=== PATIENT | female | born 1995 | race American Indian/Alaskan Native ===

== ENCOUNTER 2018-06-18 22:41 | Emergency (ER) | payer OTHER ==
[2018-06-18 22:59] VITALS: O2SAT 97
--- NOTE | 2018-06-18 23:36 | C.PDOC ---
History Of Present Illness 23 year old female is brought in to the ED by EMS and Police for evaluation. Patient was found acting bizarre in the lobby of her apartment. Initially patient was agitated upon arrival to the ED. Patient is now calm, cooperative. Patient states she ate some edible marijuana treat and smoke some marijuana as well. Patient states "coming down from a very bad trip". Patient has PMHx of asthma. Patient denies fever, chills, nausea, vomit, diarrhea, SOB, CP, SI/HI, hallucinations. Time Seen by Provider: 06/18/18 23:11 Chief Complaint (Nursing): Psychiatric Evaluation History Per: Patient, EMS History/Exam Limitations: intoxication Onset/Duration Of Symptoms: Hrs Current Symptoms Are (Timing): Still Present Suicide/Self Injury Attempted (Context): None Modifying Factor(s): Marijuana Associated Symptoms: denies: Depression, Suicidal Thoughts, Suicidal Plan Recent travel outside of the [place]: No Additional History Per: Patient, EMS, Law Enforcement Past Medical History Reviewed: Historical Data, Nursing Documentation, Vital Signs Vital Signs: Last Vital Signs Temp 99.9 F H 06/19/18 00:15 Pulse 113 H 06/19/18 00:15 Resp 22 06/19/18 00:15 BP 102/47 L 06/19/18 00:15 Pulse Ox 97 06/19/18 00:15 - Medical History PMH: Asthma Surgical History: No Surg Hx Family History: States: Unknown Family Hx - Social History Hx Alcohol Use: (unknown) Hx Substance Use: Yes - Immunization History Hx Tetanus Toxoid Vaccination: (unknown) Hx Influenza Vaccination: (unknown) Hx Pneumococcal Vaccination: (unknown) Review Of Systems Constitutional: Negative for: Fever, Chills Cardiovascular: Negative for: Chest Pain, Palpitations Respiratory: Negative for: Cough, Shortness of Breath Gastrointestinal: Negative for: Nausea, Vomiting, Abdominal Pain Neurological: Negative for: Weakness, Numbness Psych: Negative for: Depression, Suicidal ideation Physical Exam - Physical Exam Appears: Non-toxic, No Acute Distress Skin: Normal Color, Warm, Dry Head: Atraumatic, Normacephalic Eye(s): bilateral: Normal Inspection Oral Mucosa: Moist Neck: Normal ROM, Supple Chest: Symmetrical Cardiovascular: Rhythm Regular Respiratory: Normal Breath Sounds, No Rales, No Rhonchi, No Wheezing Gastrointestinal/Abdominal: Soft, No Tenderness, No Guarding, No Rebound Extremity: Normal ROM, No Tenderness, No Swelling Neurological/Psych: Oriented x3, Normal Speech, Other (calm, cooperative) Gait: Steady ED Course And Treatment - Laboratory Results Result Diagrams: 06/19/18 00:08 06/19/18 00:08 Lab Interpretation: Abnormal (K+ 2.8, UDS positive for marijuana) O2 Sat by Pulse Oximetry: 97 (ON RA) Pulse Ox Interpretation: Normal Reevaluation Time: 00:42 Reassessment Condition: Improved (Patient remains calm. Heart rate decreased and she feels much better.) Medical Decision Making Medical Decision Making: Impression: bizarre behaviour Plan: * Labs * 1:1 Obs * UA Disposition Counseled Patient/Family Regarding: Studies Performed, Diagnosis, Need For Followup - Disposition Disposition: HOME/ ROUTINE Disposition Time: 00:44 Condition: IMPROVED Instructions: Marijuana Forms: [employer] (Yoruba) - Clinical Impression Clinical Impression: Marijuana abuse - Scribe Statement The provider has reviewed the documentation as recorded by the Scribe Henry Powell All medical record entries made by the Scribe were at my direction and personally dictated by me. I have reviewed the chart and agree that the record accurately reflects my personal performance of the history, physical exam, medical decision making, and the department course for this patient. I have also personally directed, reviewed, and agree with the discharge instructions and disposition.
[2018-06-19 00:14] LABS: BASO % 0.2 % (0.0-2.0); EOS # 0.1 K/uL (0.0-0.7); EOS % 0.7 % (0.0-4.0); HEMOGLOBIN 11.7 g/dL (11.0-16.0); LYMPH # 2.4 K/uL (1.0-4.3); LYMPH % 15.4 % (20.0-40.0); MEAN CORPUSCULAR HEMOGLOBIN 24.5 pg (27.0-31.0); MEAN CORPUSCULAR HGB CONC 32.6 g/dL (33.0-37.0); MEAN PLATELET VOLUME 7.4 fL (7.2-11.7); MONO # 0.9 K/uL (0.0-0.8); MONO % 5.7 % (0.0-10.0); NEUT # 11.9 K/uL (1.8-7.0); RBC 4.77 Mil/uL (3.80-5.20); RED CELL DISTRIBUTION WIDTH 14.3 % (11.5-14.5); WHITE BLOOD COUNT 15.3 K/uL (4.8-10.8)
[2018-06-19 00:21] LABS: HCG,QUALITATIVE URINE NEGATIVE (NEGATIVE)
[2018-06-19 00:26] LABS: ALB/GLOB RATIO 1.5 (1.0-2.1); ALBUMIN 4.6 g/dL (3.5-5.0); ALT/SGPT 24 U/L (9-52); AST/SGOT 33 U/L (14-36); BLOOD UREA NITROGEN 11 mg/dL (7-17); CALCIUM 9.2 mg/dl (8.6-10.4); GFR AFRICAN-AMERICAN > 60; GFR NON-AFRICAN AMERICAN > 60
[2018-06-19 00:27] VITALS: BP 102/47; PULSE 113; RESP 22; TEMP 99.9
[2018-06-19 00:29] LABS: BARBITURATES, UR NEGATIVE (NEGATIVE); BENZODIAZEPINES, UR NEGATIVE (NEGATIVE); OPIATES, UR NEGATIVE (NEGATIVE); PHENCYCLIDINE, UR NEGATIVE (NEGATIVE)
[2018-06-19 00:30] LABS: SQUAMOUS EPITHIAL 3 /hpf (0-5); URINE BILIRUBIN NEGATIVE (NEGATIVE); URINE BLOOD 1+ (NEGATIVE); URINE CLARITY Hazy (Clear); URINE COLOR Yellow (YELLOW); URINE GLUCOSE (UA) NORMAL (Normal); URINE LEUKOCYTE ESTERASE NEG Leu/uL (Negative); URINE PROTEIN 1+ mg/dL (NEGATIVE); URINE UROBILINOGEN NORMAL mg/dL (0.2-1.0)
[2018-06-19] MEDS ORDERED: Potassium Chloride 20 mEq ER Tab PO STA (00:36)
[2018-06-19] MEDS ORDERED: Potassium Chloride 20 mEq ER Tab PO ONE (00:47)
== END 2018-06-19 00:54 | disposition home or self-care (01) ==
LOC: C.ER 22:41
DX: F12.10 Cannabis abuse, uncomplicated (principal)